=== PATIENT | female | born 1980 | race Caucasian/White ===

== ENCOUNTER 2017-07-18 13:57 | Inpatient (IN) | payer MEDICAID, OTHER ==
[~2017-07-18] VITALS: Ht 157.5 cm; Wt 61.7 kg
[~2017-07-18 13:57] MED LIST: BUSP10TA GT; BUSP10TA PO; CYMB60CA3 PO; KLON1TAB PO; TRAZ100T2 PO; VIIB40TA PO; vybrid
[2017-07-18 15:54] LABS: MEAN CORPUSCULAR HEMOGLOBIN 33.2 pg (27.0-33.0); MEAN CORPUSCULAR HGB CONC 34.4 g/dl (32.0-36.5); MEAN CORPUSCULAR VOLUME 96.4 fl (80.0-96.0); RED CELL DISTRIBUTION WIDTH 12.5 % (11.5-14.5); WHITE BLOOD COUNT 9.5 K/mm3 (4.0-10.0)
[2017-07-18 16:12] LABS: METHADONE URINE NEGATIVE (NEGATIVE)
[2017-07-18 16:12] LABS: CONTROL LINE HCG INT CTR LINE PRESENT
[2017-07-18 16:29] LABS: ALBUMIN 3.1 GM/DL (3.2-5.2); ALBUMIN/GLOBULIN RATIO 1.15 (1.00-1.93); ALKALINE PHOSPHATASE 46 U/L (45-117); ALT/SGPT 21 U/L (12-78); ANION GAP 9 MEQ/L (8-16); AST/SGOT 19 U/L (15-37); BILIRUBIN,DIRECT < 0.1 MG/DL (0.0-0.2); BILIRUBIN,TOTAL 0.2 MG/DL (0.2-1.0); BLOOD UREA NITROGEN 3 MG/DL (7-18); CARBON DIOXIDE LEVEL 23 MEQ/L (21-32); CHLORIDE LEVEL 116 MEQ/L (98-107); CREATININE FOR GFR 0.58 MG/DL (0.55-1.02); GLOMERULAR FILTRATION RATE > 60.0 (>60); GLUCOSE, FASTING 84 MG/DL (70-105); POTASSIUM SERUM 3.8 MEQ/L (3.5-5.1); SODIUM LEVEL 148 MEQ/L (136-145); TOTAL PROTEIN 5.8 GM/DL (6.4-8.2)
[2017-07-18] MEDS ORDERED: LORazepam 0.5 MG TAB PO ONE (17:00)
[2017-07-18] MEDS ORDERED: ACETAMINOPHEN TAB 650MG DOSE (2X325MG) PO ONE (18:45)
[2017-07-18] MEDS ORDERED: MOM 30ML SUSPENSION UDC PO PRN (20:45)
[2017-07-18] MEDS ORDERED: MAALOX 30 ML SUSP *UDC PO PRN (20:45)
[2017-07-18] MEDS ORDERED: ACETAMINOPHEN TAB 650MG DOSE (2X325MG) PO PRN (20:45)
[2017-07-18] MEDS: THIAMINE 100 MG TAB PO SCH (21:15)
[2017-07-18 21:54] VITALS: BP 106/67
[2017-07-18] MEDS: LORazepam 2 MG TAB PO PRN (22:38)
[2017-07-19 06:00] VITALS: BP 104/56
[2017-07-19] MEDS: THIAMINE 100 MG TAB PO SCH ×2 (08:18→20:14)
[2017-07-19] MEDS: NICOTINE 21MG/24HR 1 EA TRANSDERMAL TD SCH ×2 (08:18→09:30)
[2017-07-19] MEDS: MULTIVITAMINS/MINERALS THERAP 1 TAB PO SCH (08:18)
[2017-07-19] MEDS: FOLIC ACID 1 MG TAB PO SCH (08:18)
[2017-07-19] MEDS: OLANZapine 5 MG TAB PO PRN (09:28)
[2017-07-19] MEDS: QUEtiapine FUMARATE 100 MG TAB PO SCH ×2 (09:49→20:14)
[2017-07-19 10:14] VITALS: BP 117/88
[2017-07-19] MEDS: LORazepam 2 MG TAB PO PRN (10:16)
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
[2017-07-19 17:43] VITALS: BP 117/77
[2017-07-19 18:00] VITALS: BP 117/77
[2017-07-19] MEDS ORDERED: ONDANSETRON 4 MG ORAL DISINTEGRATING TAB (S0181) PO PRN (19:30)
[2017-07-19] MEDS: traZODone 50 MG TAB PO PRN (20:14)
--- NOTE | 2017-07-20 04:25 | HPE ---
DATE OF ADMISSION: 07/18/2017 HISTORY OF PRESENT ILLNESS: Please refer to psychiatric history and evaluation for further details on this admission. This examination and history is intended for medical issues, which may need treatment, followup or consult on this 36-year-old female. ALLERGIES: REGLAN and MELON. SOCIAL HISTORY: She is single. She was living with her boyfriend. They have broken up. She then was staying at her aunt's. Ethyl alcohol (EtOH): She had been drinking only once or twice a month, but after the breakup with her boyfriend she has been drinking heavily since Friday liquor and coca-cola, beer to the point of passing out. Recreational drug use: Occasional marijuana. She used to take cocaine and bath salts. She has been clean for a long time. PAST MEDICAL HISTORY: Negative. PAST SURGICAL HISTORY: 1. Tubal ligation. 2. Oophorectomy left. FAMILY HISTORY: Noncontributory. LABORATORY STUDIES: WBC 9.5, hemoglobin 13.9, hematocrit 40.3, platelets 244. Sodium 148, potassium 3.8, chloride 116, CO2 23, BUN and creatinine 3 and 0.58. Calcium 8.0, TSH 0.931, beta hCG negative. Urine was positive for cannabinoids. EtOH was 0.152. HOME MEDICATIONS: None. REVIEW OF SYSTEMS: 10-system review was done. She had no complaint of headache. No blurred or double vision. No fever. She had chills. No tinnitus. No hoarseness. No difficulty swallowing. She felt slightly lightheaded. No vertigo. Breasts: No masses. Cardiovascular: No complaints of chest pain, shortness of breath, palpitations or edema. Respiratory: No chronic cough, no sputum production. No hemoptysis. No orthopnea. No wheeze. Gastrointestinal: She felt nauseated. No vomiting or diarrhea. No hematochezia. No melena. No complaints of abdominal pain. Genitourinary/rectal: Not done. Extremities show equal strength, full range of motion. No cyanosis, clubbing or edema. Peripheral pulses equal and palpable bilaterally. Skin is warm and dry. Negative Romberg. Gait steady. IMPRESSION/PLAN: Psychiatric plan per psychiatry. Monitor for alcohol withdrawal. I will order Zofran 4 mg sublingual every 4 hours as needed for nausea. I encouraged her to drink clear liquids. Encouraged her to take her thiamine and folic acid as ordered and Multivite.
[2017-07-20 06:37] VITALS: BP 107/69
[2017-07-20 06:40] VITALS: BP 107/69
[2017-07-20] MEDS: NICOTINE 21MG/24HR 1 EA TRANSDERMAL TD SCH (09:01)
[2017-07-20] MEDS: THIAMINE 100 MG TAB PO SCH ×2 (09:01→20:13)
[2017-07-20] MEDS: MULTIVITAMINS/MINERALS THERAP 1 TAB PO SCH (09:01)
[2017-07-20] MEDS: FOLIC ACID 1 MG TAB PO SCH (09:01)
[2017-07-20] MEDS: QUEtiapine FUMARATE 100 MG TAB PO SCH (09:01)
[2017-07-20] MEDS: OLANZapine 5 MG TAB PO PRN (12:26)
[2017-07-20 12:30] VITALS: BP 112/79
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
[2017-07-20] MEDS: OLANZapine 5 MG TAB PO SCH ×2 (16:40→22:00)
[2017-07-20 18:00] VITALS: BP 137/86
[2017-07-20] MEDS: traZODone 50 MG TAB PO PRN (20:13)
[2017-07-20] MEDS: QUEtiapine FUMARATE 200 MG TAB PO SCH (20:13)
[2017-07-21 06:00] VITALS: BP 107/60
[2017-07-21] MEDS: OLANZapine 5 MG TAB PO SCH ×3 (06:26→21:50)
[2017-07-21 06:30] VITALS: BP 107/60
[2017-07-21] MEDS: QUEtiapine FUMARATE 200 MG TAB PO SCH ×2 (08:50→20:41)
[2017-07-21] MEDS: MULTIVITAMINS/MINERALS THERAP 1 TAB PO SCH (08:50)
[2017-07-21] MEDS: NICOTINE 21MG/24HR 1 EA TRANSDERMAL TD SCH (08:50)
[2017-07-21] MEDS: FOLIC ACID 1 MG TAB PO SCH (08:50)
[2017-07-21] MEDS: THIAMINE 100 MG TAB PO SCH (08:50)
[2017-07-21 11:48] VITALS: BP 124/77
[2017-07-21] MEDS: LORazepam 2 MG TAB PO PRN ×2 (11:51→14:02)
[2017-07-21 13:59] VITALS: BP 114/80
--- NOTE | 2017-07-21 15:47 | MHIPNPDOC ---
[facility] Progress Note Progress Note DATE OF SERVICE: 07/21/17 HISTORY: Was again apologetic regarding her behavior at the initial assessment. Stated that part of her problem had been "being overstressed" by caring for the children of her boyfriend. She has, since admission, decided not to follow up with the boyfriend who triggered her suicidal thoughts. She plans to work on reestablishing her independence by staying with her aunt for a few days and then [facility] while looking for a job. She looks forward to the prospect that she may be able to see her biological children again someday if she can stay sober. Endorses feeling much better since admission. VITAL SIGNS: See below. NEW TEST RESULTS: no new labs CURRENT MEDICATIONS: See below. MENTAL STATUS EXAMINATION: Patient is a 36-year old female, who is dressed in [facility]; she appears older than the stated age an has fair-good hygiene; she is calm and cooperative with the interview Speech: Is fluent; normal volume and tone Thought processes including: logical, linear, goal-oriented Thought content: denies SI/HI, focused on self improvement. Abstract reasoning, and computation: intact. Description of associations: intact Description of abnormal or psychotic thoughts: denies AVH, no evidence of internal stimuli; no paranoid or delusional thoughts elicited on interview Judgment: fair Insight: fair Orientation: x3 Recent and remote memory: intact Attention span and concentration: intact Mood: "pretty good". Affect: bashful affect; full range, congruent to stated thought content. DIAGNOSES: 1. Adjustment disorder with depressed mood. 2. Rule out substance-induced mood disorder. 3. Alcohol use disorder 4. Marijuana use disorder 5. Rule out bipolar disorder ASSESSMENT: Patient has been doing well on the unit, calm and cooperative with staff and attending groups. She feels that she is back in control of her emotions and currently expresses interest in continuing with outpatient follow- up. Patient likely was making impulsive decisions/statements while under the influence of multiple drugs and while sober appears far more stable. There are not currently any safety concerns. She discussed having a court date in 2 days and was curious if she would be discharged before then so that she could attend and keep her drivers license. Patient appears past the initial crisis and would likely benefit from the outpatient setting. MANAGEMENT PLAN: Will continue current medications; will discuss discharge planning and outpatient options; patient encouraged to continue with groups to assist in developing coping skills TIME SPENT: 15 minutes. Vital Signs Vital Signs Date Time Temp Pulse Resp B/P (MAP) Pulse Ox O2 Delivery O2 Flow Rate FiO2 07/21/17 13:59 123 114/80 07/21/17 06:00 98.6 18 07/18/17 21:09 96 07/18/17 14:22 Room Air Current Medications Current Medications Acetaminophen (Tylenol Tab) 650 mg Q6HP PRN PO HEADACHE or DISCOMFORT; Start at 20:45; Stop 08/17/17 at 20:44 Al Hydrox/Mg Hydrox/Simethicone (Mylanta) 30 ml Q4HP PRN PO HEARTBURN/ INDIGESTION; Start 07/18/17 at 20:45; Stop 08/17/17 at 20:44 Folic Acid (Folic Acid) 1 mg DAILY PO Last administered on 07/21/17 08:50; Start 07/19/17 at 09:00; Stop 08/18/17 at 08:59 Home Med (Med Rec Complete!) ASDIRECTED XX ; Start 07/18/17 at 21:15; Stop at 21:18; Status DC Lorazepam (Ativan) 2 mg ASDIRECTED PRN PO SEE PROTOCOL Last administered on 14:02; Start 07/18/17 at 20:45; Stop 07/25/17 at 20:44 Magnesium Hydroxide (Milk Of Magnesia) 30 ml DAILYPRN PRN PO CONSTIPATION; Start 07/18/17 at 20:45; Stop 08/17/17 at 20:44 Multivitamins (Theragram-M) 1 tab DAILY PO Last administered on 07/21/17 08:50 ; Start 07/19/17 at 09:00; Stop 08/18/17 at 08:59 Nicotine (Nicoderm Cq 21mg) 1 patch DAILY TD Last administered on 07/21/17 08: 50; Start 07/19/17 at 09:00; Stop 08/18/17 at 08:59 Olanzapine (ZyPREXA) 5 mg Q6HP PRN PO ANXIETY/AGITATION Last administered on 12:26; Start 07/18/17 at 20:45; Stop 07/20/17 at 12:52; Status DC Olanzapine (ZyPREXA) 10 mg Q8H PO Last administered on 07/21/17 14:02; Start 07/20/17 at 14:00; Stop 08/17/17 at 13:59 Ondansetron HCl (Zofran Odt) 4 mg Q4HP PRN PO NAUSEA OR VOMITING Last administered on 07/19/17 20:14; Start 07/19/17 at 19:30; Stop 08/18/17 at 19:29 Quetiapine Fumarate (SEROquel) 100 mg BID PO Last administered on 07/20/17 09: 01; Start 07/19/17 at 09:00; Stop 07/20/17 at 12:52; Status DC Quetiapine Fumarate (SEROquel) 200 mg BID PO Last administered on 07/21/17 08: 50; Start 07/20/17 at 21:00; Stop 08/19/17 at 20:59 Thiamine HCl (Thiamine HCl) 100 mg BID PO Last administered on 07/21/17 08:50 ; Start 07/18/17 at 21:00; Stop 07/21/17 at 20:59 Trazodone HCl (Desyrel) 50 mg QHSP PRN PO INSOMNIA Last administered on 20:13; Start 07/18/17 at 20:45; Stop 08/17/17 at 20:44 Allergies Coded Allergies: MELONS (Verified Allergy, Severe, EDEMA, 02/19/07) No Known Drug Allergy (Verified Allergy, Unknown, 02/23/13) Metoclopramide (Verified Adverse Reaction, Intermediate, ANXIETY, 02/23/13) DELTA LOPEZ MD Jul 21, 2017 15:47
[2017-07-21 18:00] VITALS: BP 114/73
[2017-07-21] MEDS: traZODone 50 MG TAB PO PRN (20:41)
[2017-07-21 22:00] VITALS: BP 122/72
[2017-07-22] MEDS: OLANZapine 5 MG TAB PO SCH (06:06)
[2017-07-22 06:55] VITALS: BP 99/70
[2017-07-22] MEDS: QUEtiapine FUMARATE 200 MG TAB PO SCH (08:50)
[2017-07-22] MEDS: FOLIC ACID 1 MG TAB PO SCH (08:50)
[2017-07-22] MEDS: MULTIVITAMINS/MINERALS THERAP 1 TAB PO SCH (08:50)
[2017-07-22] MEDS: NICOTINE 21MG/24HR 1 EA TRANSDERMAL TD SCH (08:54)
[2017-07-22] MEDS ORDERED: QUET1TAB9 PO (09:29)
[2017-07-22] MEDS ORDERED: OLAN5TAB PO (09:29)
[2017-07-22] MEDS ORDERED: TRAZO50TA PO (09:29)
[2017-07-22] MEDS ORDERED: VITMTA PO (09:29)
[2017-07-22] MEDS ORDERED: NICO21PAT TD (09:29)
--- NOTE | 2017-07-22 16:53 | MHDSPDOC ---
[facility] Discharge Summary Discharge Summary DATE OF ADMISSION: Jul 18, 2017 at 20:43 DATE OF DISCHARGE: Jul 22, 2017 at 12:00 DISCHARGE DIAGNOSES: 1. Adjustment disorder with depressed mood. 2. Rule out substance-induced mood disorder. 3. Alcohol use disorder 4. Marijuana use disorder 5. Rule out bipolar disorder REASON FOR ADMISSION: suicidal ideation while under the influence of alcohol and while withdrawing from alcohol CONSULTANTS INVOLVED: none TREATMENT AND PROGRESS ON THE UNIT : Patient was admitted and restarted on medications as per her previous discharge. She was initially very hostile but rapidly calmed down and became friendly and apologetic. She reported no side effects from her medications and stated that she felt her mood was improving. She developed plans to stay with a relative for a brief time after discharge and then pursue placement through the [facility] and seeking employment. Patient was discharged to allow her to attend an upcoming court date as the patient had rapidly stabilized and was consistently displaying no evidence of depressed mood or suicidal ideation. HOSPITAL COURSE: Patient was started on lorazepam for ETOH withdrawals. For anxiety and possible ashley she was started on Zyprexa and Seroquel. Patient displayed a rapid return to a calm state and was able to participate in groups. She was able to hold rational discussions about her situation and divulged that she had an upcoming court date. Based upon patient's history of drug use and reports that her boyfriend was her supplier it is possible that some of her reactions may have been due to withdrawals. Patient was noted to be anxious on day of discharge which she attributed to wanting a "real smoke" after having been hospitalized for several days. There are no acute safety concerns, patient may be discharged to home with plan to follow-up outpatient. DISCHARGE ASSESSMENT: Patient appears stable and not a danger to herself or others. The anxiety being displayed by the patient at this time may be addictive cravings taking over, she has a long history of drug use and may be seeking to use shortly after discharge. However, she was agreeable to attend [facility] rehab treatment. There are no acute safety concerns at this time. Patient will be discharging to a family member whom she trusts and has plans to stay away from her boyfriend who was doubling as her dealer. She has consistently denied SI throughout the admission and has had a relatively bright affect, there is not evidence of current depressed mood. MENTAL STATUS EXAMINATION ON DISCHARGE: Patient is a 36-year old female, who is dressed in [facility]; appears older than stated age, has fair hygiene/grooming; good eye contact, fidgety Speech is fluent; normal volume and tone Thought processes including: logical, linear, goal-directed Thought content: denies SI/HI, focused on smoking a cigarette upon discharge Abstract reasoning, and computation: intact Description of associations: intact Description of abnormal or psychotic thoughts: no evidence of internal stimuli; no paranoid or delusional thoughts elicited Judgment: fair Insight: fair Orientation to x3 Recent and remote memory: intact Attention span and concentration: intact Mood: "I want to get out and have a smoke" Affect: anxious with constricted affect; congruent to stated mood MEDICATIONS ON DISCHARGE: See below PLAN/FOLLOWUP ARRANGEMENTS: Appointment scheduled at [facility], patient given referral to [facility] for substance use The amount of time spent in the coordination of care for this patient was approximately 30 minutes. Vital Signs/I&Os Vital Signs Date Time Temp Pulse Resp B/P (MAP) Pulse Ox O2 Delivery O2 Flow Rate FiO2 07/22/17 06:55 98.8 79 16 99/70 (80) Room Air 07/18/17 21:09 96 Medications Scheduled Multivitamins *[facility] STOCKED* (Thera M Plus *[facility] STOCKED*) 1 Tab Tab, 1 TAB PO DAILY for WITHDRAWAL SYMPTOMS, #10 Nicotine (Nicotine Transdermal Syst) 21 Mg/24 Hr Dis, 1 PATCH TD DAILY for SMOKING CESSATION, #10 Olanzapine (Olanzapine) 5 Mg Tab, 10 MG PO Q8H for ASHLEY/PSYCHOSIS, #42 Quetiapine Fumerate (Quetiapine Fumarate) 200 Mg Tab, 200 MG PO BID for MOOD, # 14 Scheduled PRN Trazodone HCl (Trazodone HCl) 50 Mg Tab, 50 MG PO QHSP PRN for INSOMNIA, #7 Allergies Coded Allergies: MELONS (Verified Allergy, Severe, EDEMA, 02/19/07) No Known Drug Allergy (Verified Allergy, Unknown, 02/23/13) Metoclopramide (Verified Adverse Reaction, Intermediate, ANXIETY, 02/23/13) DELTA LOPEZ MD Jul 22, 2017 16:53
[2017-09-19] MEDS ORDERED: AVEL1TAB3 PO (12:36)
[2017-09-19] MEDS ORDERED: PRED20TA PO (12:36)
== END 2017-07-22 12:00 | disposition home or self-care (01) | DRG 754 ==
LOC: M ED 13:57 → M ED INP 20:43 → M PSY 21:44
PROVIDERS: ADMIT Psychiatry & Neurology Psychiatry; ATTEND Psychiatry & Neurology Psychiatry
DX: F43.21 Adjustment disorder with depressed mood (principal); F31.9 Bipolar disorder, unspecified; F10.159 Alcohol abuse with alcohol-induced psychotic disorder, unspecified; F17.210 Nicotine dependence, cigarettes, uncomplicated; F12.159 Cannabis abuse with psychotic disorder, unspecified; Z91.018 Allergy to other foods; Z88.8 Allergy status to other drugs, medicaments and biological substances; Z91.5 Personal history of self-harm